=== PATIENT | male | born 1955 | race Caucasian/White ===

== ENCOUNTER 2019-07-22 17:36 | Emergency (ER) | payer BC ==
[2019-07-22 18:32] VITALS: BP 165/88; PULSE 88
--- NOTE | 2019-07-22 20:08 | EDM.PDOC ---
ED HPI GENERAL MEDICAL PROBLEM - General Chief Complaint: Abdominal Pain Stated Complaint: ABDOMINAL PAIN Time Seen by Provider: 07/22/19 18:31 Source of Information: Reports: Patient, RN Notes Reviewed History Limitations: Reports: No Limitations - History of Present Illness INITIAL COMMENTS - FREE TEXT/NARRATIVE: Patient is a 64-year-old male who presents to the ED for the evaluation of lower abdominal pain. Patient thought he may have developed a UTI around one week ago, as he is having dysuria, but the symptoms have kind of subsided. He notes this morning while he was at work he was lifting some heavy chains for roughly 1 hour and then developed some pain in the left groin, he does not feel a lump so he does not think it's a hernia at all. He denies any cervical low back pain or other trauma to the area. Patient feels slightly nauseated but hasn't vomited. He has not had a very great appetite today and has eaten very little. Patient states that he did have a bowel movement this morning, but felt it was a lot smaller than it normally was. Patient thinks he could be mildly constipated, and also somewhat dehydrated. Patient notes he takes blood pressure meds and cholesterol meds on a regular basis, he notes the pain to be credited just a dull ache in nature, but sometimes worsens. He states after work today he comes home relaxed on the couch and took 2 Advil and this seemed to help the pain. He denies any fevers or chills, any vomiting or diarrhea, chest pain or shortness of breath. Treatments PROCUREMENT BUYER: Reports: Other (see below) Other Treatments PROCUREMENT BUYER: advil today Left Groin Pain Score (Numeric/FACES): 10 - Related Data Allergies Allergy/AdvReac Type Severity Reaction Status Date / Time No Known Allergies Allergy Verified 12/01/16 14:09 Home Meds: Home Meds Diltiazem HCl [Cartia Xt] 120 mg PO DAILY 12/01/16 [History] Enalapril [Vasotec] 20 mg PO DAILY 12/01/16 [History] Hydrochlorothiazide 25 mg PO DAILY 12/01/16 [History] Pravastatin Sodium [Pravastatin (Pravachol)] 20 mg PO DAILY 12/01/16 [History] amLODIPine [Norvasc] 10 mg PO DAILY 12/01/16 [History] Aspirin 81 mg PO DAILY 07/22/19 [History] Calcium Carbonate [Calcium] 600 mg PO BID 07/22/19 [History] Flaxseed Oil [Flax Oil] 2 tab PO DAILY 07/22/19 [History] Ubidecarenone [Co Q-10] 100 mg PO DAILY 07/22/19 [History] Past Medical History Cardiovascular History: Reports: High Cholesterol, Hypertension Respiratory History: Reports: None Gastrointestinal History: Reports: None Genitourinary History: Reports: None Musculoskeletal History: Reports: None Neurological History: Reports: None Psychiatric History: Reports: None Endocrine/Metabolic History: Reports: None Hematologic History: Reports: None Immunologic History: Reports: None Oncologic (Cancer) History: Reports: None Other Dermatologic History: Patient has had a cyst removed from the back of his leg and a cyst removed from his wrist. - Past Surgical History Respiratory Surgical History: Reports: None GI Surgical History: Reports: None Male Surgical History: Reports: None Endocrine Surgical History: Reports: None Neurological Surgical History: Reports: None Oncologic Surgical History: Reports: None Social & Family History - Tobacco Use Smoking Status *Q: Former Smoker Used Tobacco, but Quit: Yes Month/Year Tobacco Last Used: 35 - Caffeine Use Caffeine Use: Reports: Coffee, Soda - Recreational Drug Use Recreational Drug Use: No ED ROS GENERAL - Review of Systems Review Of Systems: See Below Constitutional: Denies: Fever, Chills HEENT: Reports: No Symptoms Respiratory: Denies: Shortness of Breath Cardiovascular: Denies: Chest Pain Endocrine: Reports: No Symptoms GI/Abdominal: Reports: Abdominal Pain (LLQ/groin), Constipation, Nausea. Denies : Diarrhea, Vomiting : Reports: No Symptoms Musculoskeletal: Denies: Back Pain Skin: Reports: No Symptoms Neurological: Reports: No Symptoms Psychiatric: Reports: No Symptoms Hematologic/Lymphatic: Reports: No Symptoms ED EXAM, GI/ABD - Physical Exam Exam: See Below Exam Limited By: No Limitations General Appearance: Alert, WD/WN, No Apparent Distress Eyes: Bilateral: Normal Appearance Respiratory/Chest: No Respiratory Distress, Lungs Clear, Normal Breath Sounds, No Accessory Muscle Use, Chest Non-Tender Cardiovascular: Normal Peripheral Pulses, Regular Rate, Rhythm, No Murmur GI/Abdominal Exam: Normal Bowel Sounds, Soft, No Distention, No Mass, Tender ( very mild tenderness with deep palpation of left groin) (Male) Exam: No: No Hernia Back Exam: Normal Inspection, Full Range of Motion Extremities: Normal Inspection, Normal Range of Motion, Normal Capillary Refill Neurological: Alert, Oriented, Normal Cognition, No Motor/Sensory Deficits Psychiatric: Normal Affect, Normal Mood Skin Exam: Warm, Dry, Intact, Normal Color, No Rash Course - Vital Signs Last Recorded V/S: Last Vital Signs Temp 98.9 F 07/22/19 18:29 Pulse 88 07/22/19 18:29 Resp 20 07/22/19 18:29 BP 165/88 H 07/22/19 18:29 Pulse Ox 95 07/22/19 18:29 - Orders/Labs/Meds Labs: Laboratory Tests 07/22/19 Range/Units 19:11 Urine Color Yellow (Yellow) Urine Appearance Clear (Clear) Urine pH 5.5 (5.0-8.0) Ur Specific [place] 1.025 (1.005-1.030) Urine Protein Negative (Negative) Urine Glucose (UA) Negative (Negative) Urine Ketones 1+ H (Negative) Urine Occult Blood Trace-intact H (Negative) Urine Nitrite Negative (Negative) Urine Bilirubin Negative (Negative) Urine Urobilinogen 0.2 (0.2-1.0) Ur Leukocyte Esterase Negative (Negative) Urine RBC 0-5 (0-5) /hpf Urine WBC Not seen (0-5) /hpf Ur Epithelial Cells Not seen (0-5) /hpf Urine Bacteria Rare (FEW) /hpf Urine Mucus Moderate H (FEW) /hpf - Re-Assessments/Exams Free Text/Narrative Re-Assessment/Exam: 07/22/19 20:09 Patient presents to the ED for evaluation of abdominal pain. This pain is characterized more in his left lower quadrant or left-sided groin. He does not appear to be overly bothered with palpation of the area. The patient did say that the Advil taken at home helped a lot, I'm suspecting this is more of a musculoskeletal strain in nature. I did order a UA, and there is a trace amount of lead in this but everything else is normal at this time. I will likely send the patient home with general recommendations and have him follow- up if the pain does not resolve in a few days. Departure - Departure Time of Disposition: 20:19 Disposition: Home, Self-Care 01 Condition: Fair Clinical Impression: Strain of left inguinal muscle Qualifiers: Encounter type: initial encounter Qualified Code(s): S39.013A - Strain of muscle, fascia and tendon of pelvis, initial encounter - Discharge Information *PRESCRIPTION DRUG MONITORING PROGRAM REVIEWED*: No *COPY OF PRESCRIPTION DRUG MONITORING REPORT IN PATIENT ANNAMARIA: No Instructions: Muscle Strain, Oisa-ti-Stop Referrals: Suad Padilla NP [Primary Care Provider] - Forms: ED Department Discharge Additional Instructions: You have been evaluated in the ED for your LLQ/groin pain. Your urinalysis did not demonstrate any sort of an acute infective process. Your injuries may likely be due to muscle strain in your left groin. Please use ice as tolerated to the affected area. You may take Tylenol 500 mg or ibuprofen 600mg q6 hrs for pain relief. Please do so until you have a tolerable level of pain with activity. Do not exceed 4000mg Tylenol or 3200mg ibuprofen in a 24 hour time period. Your symptoms should likely get better in a few days' time, if they do not, however, I would recommend taking care for re-evaluation. Please return to ED if your symptoms should change or worsen.
== END 2019-07-22 20:43 | disposition home or self-care (01) ==
LOC: JD.ED 17:36
DX: S39.011A Strain of muscle, fascia and tendon of abdomen, initial encounter (principal); I10 Essential (primary) hypertension; E78.00 Pure hypercholesterolemia, unspecified; Z87.891 Personal history of nicotine dependence; Z79.899 Other long term (current) drug therapy; Z79.82 Long term (current) use of aspirin; X50.0XXA Overexertion from strenuous movement or load, initial encounter; Y99.0 Civilian activity done for income or pay
CPT/HCPCS: 81001; 99284